=== PATIENT | female | born 1940 | race Caucasian/White ===

== ENCOUNTER → 2023-08-22 12:40 | Outpatient (REF) | payer OTHER, SELFPAY | LOC: HWRAD 12:40 | PROVIDERS: ATTENDING PHYSICIAN Internal Medicine | DX: M25.561 Pain in right knee (principal); M25.562 Pain in left knee | CPT/HCPCS: 73564 ==

== ENCOUNTER → 2024-09-23 10:43 | Outpatient (REF) | payer OTHER, SELFPAY | LOC: HWRAD 10:43 | PROVIDERS: ATTENDING PHYSICIAN Internal Medicine | DX: Z78.0 Asymptomatic menopausal state (principal) | CPT/HCPCS: 77080 ==